=== PATIENT | male | born 1960 | race Caucasian/White ===

== ENCOUNTER 2016-06-11 19:41 | Emergency (ER) | payer OTHER ==
[~2016-06-11] VITALS: Ht 162.5 cm; Wt 63.5 kg
[~2016-06-11 19:41] MED LIST: FLEXERIL10 MG PO; IBU-8800 MG PO
[2016-06-11 20:25] VITALS: BP 170/90
[2016-06-11] MEDS ORDERED: Orphenadrine C100 MG PO (22:51)
[2016-06-11] MEDS ORDERED: ANAPROX DS550 MG PO ×2 (22:51→23:03)
[2016-06-11] MEDS ORDERED: CYCLOBENZAPRINE5 M3 PO (23:03)
[2016-06-11] MEDS ORDERED: HYDROCODONE BIT1 T11 PO (23:03)
== END 2016-06-11 23:35 | disposition home or self-care (01) ==
LOC: ED 19:41
DX: S16.1XXA Strain of muscle, fascia and tendon at neck level, initial encounter (principal); S40.011A Contusion of right shoulder, initial encounter; S29.012A Strain of muscle and tendon of back wall of thorax, initial encounter; W19.XXXA Unspecified fall, initial encounter; Y93.89 Activity, other specified; Y92.9 Unspecified place or not applicable; Y99.9 Unspecified external cause status

== ENCOUNTER → 2016-08-12 | Outpatient (CLI) | payer OTHER ==
[~2016-08-12] MED LIST changes: +ANAPROX DS550 MG PO; +CYCLOBENZAPRINE5 M3 PO; +HYDROCODONE BIT1 T11 PO; +Orphenadrine C100 MG PO
== END | disposition home or self-care (01) ==
LOC: MRI 08:00
DX: S16.1XXA Strain of muscle, fascia and tendon at neck level, initial encounter (principal); M48.02 Spinal stenosis, cervical region; M47.892 Other spondylosis, cervical region; Z91.81 History of falling

== ENCOUNTER 2018-03-30 12:58 | Emergency (ER) | payer OTHER ==
[~2018-03-30] VITALS: Ht 162.5 cm; Wt 63.5 kg
[2018-03-30 13:00] VITALS: BP 172/71
[2018-03-30] MEDS ORDERED: FLONASE ALLERG9.9 ML NAS (14:14)
[2018-03-30] MEDS ORDERED: AMOXICILLIN500 M2 PO (14:14)
[2018-03-30] MEDS ORDERED: ZYRTEC10 MG PO (14:14)
== END 2018-03-30 14:27 | disposition home or self-care (01) ==
LOC: ED 12:58
DX: J01.90 Acute sinusitis, unspecified (principal)

== ENCOUNTER 2020-09-22 17:53 | Emergency (ER) | payer OTHER ==
[~2020-09-22] VITALS: Ht 162.5 cm; Wt 63.5 kg
[~2020-09-22 17:53] MED LIST changes: +AMOXICILLIN500 M2 PO; +FLONASE ALLERG9.9 ML NAS; +ZYRTEC10 MG PO
[2020-09-22 18:03] VITALS: BP 171/80
[2020-09-22] MEDS ORDERED: AMOXICILLIN875 MG PO (18:12)
[2020-09-22] MEDS ORDERED: 24HOUR ALLERGY10 MG PO (18:13)
[2020-09-22] MEDS ORDERED: CLARITIN10 MG PO (18:14)
[2020-09-22] MEDS ORDERED: AUGMENTIN 875875 MG PO (19:04)
[2020-09-22] MEDS ORDERED: PREDNISONE20 M1 PO (19:04)
== END 2020-09-22 19:22 | disposition home or self-care (01) ==
LOC: ED 17:53
DX: J32.9 Chronic sinusitis, unspecified (principal); Z79.899 Other long term (current) drug therapy

== ENCOUNTER 2021-04-15 21:31 | Emergency (ER) | payer OTHER ==
[~2021-04-15] VITALS: Ht 162.5 cm; Wt 63.5 kg
[~2021-04-15 21:31] MED LIST changes: +24HOUR ALLERGY10 MG PO; +AMOXICILLIN875 MG PO; +AUGMENTIN 875875 MG PO; +CLARITIN10 MG PO; +PREDNISONE20 M1 PO
[2021-04-15] MEDS ORDERED: VITAMIN C100 M3 PO (21:40)
[2021-04-15] MEDS ORDERED: ZINC50 M4 PO (21:40)
[2021-04-15] MEDS ORDERED: VITAMIN D-40010 MCG PO (21:40)
[2021-04-15] MEDS ORDERED: AUGMENTIN 875875 MG PO (23:00)
[2021-04-15] MEDS ORDERED: FLONASE ALLERG9.9 ML NAS (23:00)
== END 2021-04-15 23:35 | disposition home or self-care (01) ==
LOC: ED 21:31
DX: J32.9 Chronic sinusitis, unspecified (principal); Z20.822 Contact with and (suspected) exposure to COVID-19; Z79.899 Other long term (current) drug therapy

== ENCOUNTER → 2021-05-28 | Outpatient (CLI) | payer OTHER ==
[~2021-05-28] MED LIST changes: +VITAMIN C100 M3 PO; +VITAMIN D-40010 MCG PO; +ZINC50 M4 PO
== END | disposition home or self-care (01) ==
LOC: COVID19 15:41
PROVIDERS: ATTEND Internal Medicine
DX: Z11.52 Encounter for screening for COVID-19 (principal)

== ENCOUNTER 2021-12-14 01:31 | Emergency (ER) | payer OTHER ==
[~2021-12-14] VITALS: Ht 162.5 cm; Wt 63.5 kg
[~2021-12-14 01:31] MED LIST changes: -NAPROSYN500 MG PO
[2021-12-14 02:19] VITALS: BP 174/68
[2021-12-14] MEDS ORDERED: NAPROSYN500 MG PO (04:51)
== END 2021-12-14 05:20 | disposition home or self-care (01) ==
LOC: ED 01:31
DX: M79.604 Pain in right leg (principal); X50.0XXA Overexertion from strenuous movement or load, initial encounter; Y93.89 Activity, other specified; Y92.89 Other specified places as the place of occurrence of the external cause; Y99.0 Civilian activity done for income or pay

== ENCOUNTER → 2021-12-14 | Outpatient (CLI) | payer OTHER ==
[~2021-12-14] MED LIST changes: +NAPROSYN500 MG PO
== END | disposition home or self-care (01) ==
LOC: US 09:30
PROVIDERS: ATTEND Emergency Medicine
DX: M79.604 Pain in right leg (principal); R79.1 Abnormal coagulation profile